=== PATIENT | male | born 1995 | race Caucasian/White ===

== ENCOUNTER 2024-08-26 07:13 | Emergency (ER) | payer OTHER ==
[~2024-08-26] VITALS: Ht 175.3 cm; Wt 82.0 kg
[2024-08-26] MEDS ORDERED: MELATONIN3 MG PO (07:31)
[2024-08-26 07:58] VITALS: BP 153/83
== END 2024-08-26 07:58 | disposition home or self-care (01) ==
LOC: ED 07:13
DX: S61.213A Laceration without foreign body of left middle finger without damage to nail, initial encounter (principal); W45.8XXA Other foreign body or object entering through skin, initial encounter
CPT/HCPCS: 99283